=== PATIENT | male | born 1960 | race Caucasian/White ===

== ENCOUNTER 2016-08-27 10:25 | Emergency (ER) | payer BC ==
[2016-08-27 11:15] VITALS: BP 131/69
--- NOTE | 2016-08-27 12:38 | UC ---
Throat Pain/Nasal [place] HPI - HPI Summary HPI Summary: patient has had 5 days of sinus pressure and congestion. no fever, no sore throat no respiratory complications. - History of Current Complaint Chief Complaint: UCRespiratory Stated Complaint: SINUS COMPLAINT Time Seen by Provider: 08/27/16 12:19 Hx Obtained From: Patient Onset/Duration: Sudden Onset, Lasting Days Severity: Moderate Pain Intensity: 7 Pain Scale Used: 0-10 Numeric Cough: None Associated Signs & Symptoms: Positive: Sinus Discomfort, Nasal Discharge - Epiglottits Risk Factors Epiglottis Risk Factors: Negative - Allergies/Home Medications Allergies/Adverse Reactions: Allergies Allergy/AdvReac Type Severity Reaction Status Date / Time No Known Allergies Allergy Verified 08/27/16 11:15 PMH/Surg Hx/FS Hx/Imm Hx Previously Healthy: Yes Respiratory History Of: Reports: COPD, Asthma - Surgical History Surgical History: Yes Surgery Procedure, Year, and Place: 1998- knee surgery. kidney stone. knee replacement 01/26. -Sep 2015 (Sinus surgery, Dr. Farah) - Family History Known Family History: Positive: None, Unknown - Social History Alcohol Use: Occasionally Substance Use Type: None Smoking Status (MU): Never Smoked Tobacco Have You Smoked in the Last Year: No - Immunization History Most Recent Influenza Vaccination: current Review of Systems Constitutional: Negative Skin: Negative Eyes: Negative ENT: Negative, Other - maxialary sinus pressure Respiratory: Negative Cardiovascular: Palpitations Gastrointestinal: Negative Genitourinary: Negative Motor: Negative Neurovascular: Negative Musculoskeletal: Negative Neurological: Headache Psychological: Negative All Other Systems Reviewed And Are Negative: Yes Physical Exam Triage Information Reviewed: Yes Appearance: Well-Appearing, Well-Nourished, Pain Distress Vital Signs: Initial Vital Signs Temp 99 F 08/27/16 11:10 Pulse 72 08/27/16 11:10 Resp 18 08/27/16 11:10 BP 131/69 08/27/16 11:10 Pulse Ox 99 08/27/16 11:10 Vital Signs Reviewed: Yes Eye Exam: Normal Eyes: Positive: Conjunctiva Clear ENT Exam: Normal ENT: Positive: Normal ENT inspection, Pharynx normal, TMs normal Dental Exam: Normal Neck exam: Normal Neck: Positive: Supple, Nontender, No Lymphadenopathy Respiratory Exam: Normal Respiratory: Positive: Chest non-tender, Lungs clear, Normal breath sounds Cardiovascular Exam: Normal Cardiovascular: Positive: RRR, No Murmur, Pulses Normal Abdominal Exam: Normal Abdomen Description: Positive: Nontender, No Organomegaly, Soft Bowel Sounds: Positive: Present Musculoskeletal Exam: Normal Musculoskeletal: Positive: Strength Intact, ROM Intact, No Edema Neurological Exam: Normal Neurological: Positive: Alert, Muscle Tone Normal Psychological Exam: Normal Psychological: Positive: Age Appropriate Behavior Skin Exam: Normal Throat Pain/Nasal Course/Dx - Course Course Of Treatment: hx obtained, exam performed, medications reviewed, medication prescribed, educated on manual sinus drainage techniques - Differential Dx/Diagnosis Differential Diagnosis/HQI/PQRI: Influenza, Laryngitis, Pharyngitis, Sinusitis, Tonsillitis, URI Provider Diagnoses: rhinosinusitis Discharge - Discharge Plan Condition: Stable Disposition: HOME Prescriptions: predniSONE TAB* [Deltasone TAB*] 40 mg PO DAILY #10 tab Patient Education Materials: Rhinosinusitis (ED) Additional Instructions: take the medication as prescribed, increase fluid intake to keep hydrated. follow up if symtoms increase.
== END 2016-08-27 12:51 | disposition home or self-care (01) ==
LOC: UCCORT 10:25
DX: J32.9 Chronic sinusitis, unspecified (principal); J44.9 Chronic obstructive pulmonary disease, unspecified
CPT/HCPCS: 99212; G0463

== ENCOUNTER 2017-08-13 12:31 | Emergency (ER) | payer BC, OTHER ==
--- NOTE | 2017-08-13 13:21 | UC ---
Respiratory Complaint HPI - HPI Summary HPI Summary: 56 year old male presents with complains of cough and shortness of breath. - History of Current Complaint Chief Complaint: UCRespiratory Stated Complaint: WHEEZING,DIFFICULTY BREATHING Time Seen by Provider: 08/13/17 13:21 Hx Obtained From: Patient Onset/Duration: Sudden Onset Timing: Constant Severity Initially: Moderate Severity Currently: Moderate Character: Cough: Nonproductive - Allergies/Home Medications Allergies/Adverse Reactions: Allergies Allergy/AdvReac Type Severity Reaction Status Date / Time No Known Allergies Allergy Verified 08/13/17 13:23 Home Medications: Home Medications [id number] [Mucinex Sinus-Max Day/Nig] 1 cap PO PRN [History] PMH/Surg Hx/FS Hx/Imm Hx Previously Healthy: Yes - Surgical History Surgical History: Yes Surgery Procedure, Year, and Place: 1998- knee surgery. kidney stone. knee replacement 01/26. [facility]-Sep 2015 (Sinus surgery, Dr. Farah) - Family History Known Family History: Positive: None, Unknown - Social History Alcohol Use: Occasionally Substance Use Type: None Smoking Status (MU): Never Smoked Tobacco Have You Smoked in the Last Year: No - Immunization History Most Recent Influenza Vaccination: current Review of Systems Constitutional: Negative Skin: Negative Eyes: Negative ENT: Sore Throat, Nasal Discharge, Sinus Congestion, Sinus Pain/Tenderness Respiratory: Cough Cardiovascular: Negative Gastrointestinal: Negative Genitourinary: Negative Motor: Negative Neurovascular: Negative Musculoskeletal: Negative Neurological: Negative Psychological: Negative All Other Systems Reviewed And Are Negative: Yes Physical Exam Triage Information Reviewed: Yes Completion Of Physical Exam Limited Due To: Altered Mental Status Appearance: Well-Appearing Vital Signs Reviewed: Yes Eye Exam: Normal ENT Exam: Normal Dental Exam: Normal Neck exam: Normal Neck: Positive: 1 Respiratory: Positive: Rhonchi, Wheezing Cardiovascular Exam: Normal Abdominal Exam: Normal Musculoskeletal Exam: Normal Neurological Exam: Normal Psychological Exam: Normal Skin Exam: Normal Respiratory Course/Dx - Differential Dx/Diagnosis Provider Diagnoses: asthma. cough. post nasal drip Discharge - Discharge Plan Condition: Stable Disposition: HOME Prescriptions: Amoxicillin/Clavulanate TAB* [Augmentin TAB 875*] 875 mg PO BID #20 tab Guaifenesin-Codeine [Cheratussin AC] 1 teasp PO BEDTIME PRN #120 ml MDD 5 ml PRN Reason: Cough Patient Education Materials: Asthma (ED) Referrals: Emmanuel Price DO [Primary Care Provider] -
[2017-08-13 13:33] VITALS: BP 125/75
== END 2017-08-13 13:48 | disposition home or self-care (01) ==
LOC: UCCORT 12:31
DX: J45.909 Unspecified asthma, uncomplicated (principal); R05 Cough; R09.82 Postnasal drip; R41.82 Altered mental status, unspecified; Z87.442 Personal history of urinary calculi; Z96.659 Presence of unspecified artificial knee joint
CPT/HCPCS: 99212; G0463